=== PATIENT | female | born 1980 | race Caucasian/White ===

== ENCOUNTER 2021-07-17 12:44 | Emergency (ER) | payer SELFPAY ==
[~2021-07-17] VITALS: Ht 170.1 cm; Wt 65.8 kg
[2021-07-17] MEDS ORDERED: HYDROCODONE-AC1 EAC1 PO (15:20)
== END 2021-07-17 16:23 | disposition home or self-care (01) ==
LOC: ED 12:44
DX: S89.91XA Unspecified injury of right lower leg, initial encounter (principal); Z88.6 Allergy status to analgesic agent; W10.8XXA Fall (on) (from) other stairs and steps, initial encounter; Y93.89 Activity, other specified; Y92.89 Other specified places as the place of occurrence of the external cause; Y99.8 Other external cause status